=== PATIENT | male | born 1955 ===

== ENCOUNTER → 2018-03-14 18:51 | Outpatient (REF) | payer OTHER, SELFPAY ==
[2018-03-14 20:28] LABS: D Dimer 752 ng/mL (<230)
== END ==
LOC: LAB 18:51
PROVIDERS: Visit Provider Family Medicine
DX: I82.409 Acute embolism and thrombosis of unspecified deep veins of unspecified lower extremity (principal)
CPT/HCPCS: 36415; 85379